=== PATIENT | female | born 1975 | race Caucasian/White ===

== ENCOUNTER 2023-10-16 10:27 | Outpatient (CLI) | payer OTHER, SELFPAY ==
--- NOTE | 2023-10-16 10:45 | MM_ITS ---
Patient: ROBERTO SALINAS Facility:?[facility] Patient ID:?[id number] Site Patient ID:?[id number]. Site :?[id number] Study:?XRay-Breast Bilateral 3D W/CAD-10/16/2023 11:10:09 AM Ordering Physician:?Not a Local Final Report: BILATERAL DIGITAL SCREENING MAMMOGRAM WITH TOMOSYNTHESIS AND COMPUTER-AIDED DETECTION CLINICAL HISTORY: Routine screening exam. COMPARISON: 07/19/2017, 07/16/2017. TECHNIQUE: Digital mammogram in CC and MLO projections including computer-aided detection (CAD). Tomosynthesis utilized. BREAST COMPOSITION: The breasts are heterogeneously dense, which may obscure small masses. FINDINGS: RIGHT Breast: Focal asymmetric density upper outer quadrant 4 cm from the nipple. LEFT Breast: No suspicious findings. IMPRESSION: RIGHT breast asymmetry/mass. RECOMMENDATIONS: Additional mammographic views of the RIGHT breast including 3D spot compression CC/MLO. RIGHT breast ultrasound may also be required. BI-RADS Category 0: Incomplete: Need Additional Imaging Evaluation and/or Prior Mammograms for Comparison [facility] will contact the patient for follow-up. A lay language report of this examination will be provided to the patient. Dictated by Noah Duong MD @ 10/17/2023 12:57:02 PM yves/Dictated by: Noah Duong MD @ 10/17/2023 12:57:00 PM Signed by:?Noah Duong MD @10/17/2023 2:25:38 PM (Electronic Signature)
== END 2023-10-16 10:28 | disposition home or self-care (01) ==
DX: Z12.31 Encounter for screening mammogram for malignant neoplasm of breast (principal); N63.10 Unspecified lump in the right breast, unspecified quadrant
CPT/HCPCS: 77063; 77067

== ENCOUNTER 2023-11-06 09:24 | Outpatient (CLI) | payer OTHER, SELFPAY ==
--- NOTE | 2023-11-06 09:45 | MM_ITS ---
Patient: ROBERTO SALINAS Facility:?[facility] Patient ID:?[id number] Site Patient ID:?[id number] Site :?[id number] Study:?XRay-Breast Right 3D W/CAD-11/06/2023 10:16:44 AM Ordering Physician:?Tan Jones Final Report: DIGITAL DIAGNOSTIC RIGHT MAMMOMGRAM USING TOMOSYNTHESIS AND COMPUTER-AIDED DETECTION RIGHT BREAST ULTRASOUND CLINICAL HISTORY: RIGHT breast mass/asymmetry. COMPARISON: 10/16/2023. TECHNIQUE: Digital RIGHT mammogram in two projections. Tomosynthesis and computer-aided detection. Real-time ultrasound imaging of RIGHT breast with imaging documentation. BREAST COMPOSITION: The breast is heterogeneously dense, which may obscure small masses. FINDINGS: 3D spot compression CC/MLO RIGHT breast mammogram images submitted persistent nodular density within the upper RIGHT breast without architectural distortion. No suspicious calcifications Targeted RIGHT breast ultrasound performed at 12 o`clock 2 cm from the nipple performed. In this location, there is a circumscribed anechoic simple cyst with increased through-transmission measuring 2.0 x 1.7 x 1.5 cm. IMPRESSION: Benign simple cyst RIGHT breast 12 o`clock 2 cm from the nipple measuring 2.0 cm. No suspicious findings. RECOMMENDATIONS: Annual bilateral screening mammography. Results and recommendations discussed with the patient BI-RADS Category 2: Benign A lay language report of this examination will be provided to the patient. Dictated by Noah Duong MD @ 11/06/2023 10:24:13 AM jj/Dictated by: Noah Duong MD @ 11/06/2023 10:24:00 AM Signed by:?Noah Duong MD @11/06/2023 1:04:07 PM (Electronic Signature)
--- NOTE | 2023-11-06 10:15 | US_ITS ---
Patient: ROBERTO SALINAS Facility:?[facility] Patient ID:?[id number] Site Patient ID:?[id number] Site :?[id number] Study:?XRay-Breast Right 3D W/CAD-11/06/2023 10:16:44 AM Ordering Physician:?Tan Jones Final Report: DIGITAL DIAGNOSTIC RIGHT MAMMOMGRAM USING TOMOSYNTHESIS AND COMPUTER-AIDED DETECTION RIGHT BREAST ULTRASOUND CLINICAL HISTORY: RIGHT breast mass/asymmetry. COMPARISON: 10/16/2023. TECHNIQUE: Digital RIGHT mammogram in two projections. Tomosynthesis and computer-aided detection. Real-time ultrasound imaging of RIGHT breast with imaging documentation. BREAST COMPOSITION: The breast is heterogeneously dense, which may obscure small masses. FINDINGS: 3D spot compression CC/MLO RIGHT breast mammogram images submitted persistent nodular density within the upper RIGHT breast without architectural distortion. No suspicious calcifications Targeted RIGHT breast ultrasound performed at 12 o`clock 2 cm from the nipple performed. In this location, there is a circumscribed anechoic simple cyst with increased through-transmission measuring 2.0 x 1.7 x 1.5 cm. IMPRESSION: Benign simple cyst RIGHT breast 12 o`clock 2 cm from the nipple measuring 2.0 cm. No suspicious findings. RECOMMENDATIONS: Annual bilateral screening mammography. Results and recommendations discussed with the patient BI-RADS Category 2: Benign A lay language report of this examination will be provided to the patient. Dictated by Noah Duong MD @ 11/06/2023 10:24:13 AM jj/Dictated by: Noah Duong MD @ 11/06/2023 10:24:00 AM Signed by:?Noah Duong MD @11/06/2023 1:04:07 PM (Electronic Signature)
== END 2023-11-06 09:25 | disposition home or self-care (01) ==
LOC: MAMMO 09:24
PROVIDERS: Visit Provider Internal Medicine
DX: N63.10 Unspecified lump in the right breast, unspecified quadrant (principal); N60.01 Solitary cyst of right breast; R92.8 Other abnormal and inconclusive findings on diagnostic imaging of breast
CPT/HCPCS: 76642; 77065; G0279